=== PATIENT | female | born 2000 | race African-American/Black ===

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

== ENCOUNTER 2021-03-04 20:05 | Emergency (ER) | payer BC, OTHER ==
[2021-03-04] MEDS ORDERED: Acetaminophen 500 MG TAB ONE (21:55)
[2021-03-04] MEDS ORDERED: Dexamethasone 4 MG TAB ONE (22:28)
== END 2021-03-05 00:15 | disposition home or self-care (01) ==
LOC: ERS 20:05
DX: J02.9 Acute pharyngitis, unspecified (principal)
CPT/HCPCS: 87081; 87430; 99283; J8540

== ENCOUNTER 2023-08-29 08:00 | Emergency (ER) | payer BC ==
[2023-08-29] MEDS ORDERED: Acetaminophen 500 MG TAB ONE (08:32)
== END 2023-08-29 10:11 | disposition home or self-care (01) ==
LOC: ERS 08:00
DX: R50.9 Fever, unspecified (principal); M79.10 Myalgia, unspecified site
CPT/HCPCS: 71045